=== PATIENT | female | born 1985 | race Caucasian/White ===

== ENCOUNTER 2017-07-30 06:03 | Day surgery (SDC) | payer OTHER ==
[2017-07-30 07:09] LABS: BASOPHILS 0.4 % (0-2); EOSINOPHILS 4.5 % (0-7); HEMATOCRIT 34.3 % (36.0-48.0); HEMOGLOBIN 10.8 g/dL (12-16); IMMATURE GRANULOCYTES 0.8 % (0-5); LYMPHOCYTES 28.4 % (15-50); MCH 30.1 pg (26.0-34.0); MCHC 31.5 g/dL (31.0-37.0); MCV 95.5 fL (80.0-100.0); MEAN PLATELET VOLUME 10.8 fL (7.4-10.4); MONOCYTES 8.3 % (2-11); NEUTROPHILS 57.6 % (40-80); PLATELET COUNT 177 10x3/uL (130-400); RBC 3.59 10x6/uL (4.00-5.40); RDW 14.3 % (11.5-14.5); WBC 5.1 10x3/uL (4.8-10.8)
[2017-07-30 07:18] LABS: APTT 30.7 SECONDS (22.8-39.4); INR 1.03 (0.85-1.17); PROTIME 13.3 SECONDS (11.6-15.0)
[2017-07-30 07:22] LABS: ANION GAP 16.1 mmol/L (8-16); CALCIUM 8.1 mg/dL (8.5-10.1); CARBON DIOXIDE 20.5 mmol/L (21.0-32.0); CREATININE - SERUM 5.8 mg/dL (0.6-1.3); POTASSIUM - SERUM 4.6 mmol/L (3.5-5.1)
[2017-07-30] MEDS ORDERED: TYLENOL W/CODEI1 TAB PO (08:20)
[2017-07-30] MEDS ORDERED: RENVELA800 MG PO (08:20)
[2017-07-30] MEDS ORDERED: METOPROLOL TART25 MG PO (08:21)
[2017-07-30] MEDS ORDERED: COUMADIN5 MG PO (08:22)
[2017-07-30] MEDS ORDERED: ULTRAM50 MG PO (08:22)
[2017-07-30] MEDS ORDERED: ZOLOFT100 MG PO (08:23)
[2017-07-30] MEDS ORDERED: ZOFRAN4 MG PO (08:23)
[2017-07-30 08:31] VITALS: BMI 27.5
[2017-07-30] MEDS ORDERED: PREDNISONE10 MG PO (08:32)
[2017-07-30] MEDS ORDERED: HYDROCODON-ACE1 EAC7 PO (12:28)
--- NOTE | 2017-07-30 13:07 | NUR ---
1255 BACK FROM AV FRAFT 2 DRESSINGS LEFT ARM C/D/I AND RT CHEST INFUSIPORT REMOVED BANDAID C/D/I NO BLEEDING TO SITES/. DR. STRICKLAND HERE TALKING TO PATIENT INFORMED OF HER HURTING STATED GOING HOME TODAY AND DIALYZE TOMORROW. REPORTED B/P ELEVATED TO DR. STRICKLAND.
--- NOTE | 2017-07-30 13:38 | NUR ---
1325 TOLERATING LEMON ELY SHOSHONE, RT CHEST BANDAID C/D/I LT ARM DRESSINGS C/D/I NO BLEEDING.
--- NOTE | 2017-07-30 13:41 | NUR ---
1330 REPORT TO BJ GRIER AND TOLD KYARA HEARD ABOUT PATIENT.
--- NOTE | 2017-07-30 15:52 | NUR ---
1400 IV DC WITH CATHER TIP INTACT
--- NOTE | 2017-08-04 14:25 | OP ---
PATIENT NAME: MARIPOSA HOLLIS MEDICAL RECORD: [id number] :81 LOCATION:D.OPS ADMISSION DATE: SURGEON: JADEN STRICKLAND MD DATE OF OPERATION: 07/30/2017 REFERRING PHYSICIAN: Dr. Espinosa and Dr. 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 OPERATION PERFORMED: Implantation of Acuseal PTFE AV graft in the right arm brachial artery to basilic vein rainbow configuration and removal of right internal jugular tunneled dialysis catheter. SURGEON: Jaden Strickland MD ANESTHESIA: Regional nerve block plus general via LMA per SLIDER ASSEMBLER and Dr. Martin. PREOPERATIVE NOTE: Ms. Hollis is a 32-year-old white female patient with end-stage renal disease, who has been dialyzing now for the last year with a catheter. She has had several failed attempts at AV fistulas. 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 She is here today for be removed the catheter and implant a graft. Under anesthesia in supine position, the patient was prepped and draped in a sterile manner. I examined it with ultrasound and confirmed that the basilic vein and brachial artery were acceptable vessels for my purposes. I actually thought that this patient would have been a candidate for a brachial artery to translocated basilic vein AV fistula had she not already had a catheter for so long and whether or not some urgency to removing her central catheter due to the thrombosis. I made a transverse axillary incision and exposed the basilic vein distal to the axillary. It was controlled with loops and later atraumatic vascular clamps. An incision was made just above the antecubital space and the brachial artery exposed and dissected free and controlled with Silastic loops. I chose a 4-6 mm tapered Acuseal graft and shortened and beveled it so that the arterial anastomosis was actually to about a 5-mm diameter part of the tapered segment. The artery was opened and flushed proximally and distally with heparinized saline and end of graft to side of artery anastomosis performed with running 6-0 Prolene. The graft was then placed in a rainbow shaped subcutaneous tunnel as close to the overlying skin as possible to facilitate access. The graft was then shortened and beveled and anastomosed end-to-side to the basilic vein again with running 6-0 Prolene. Both anastomoses were treated with topical Evicel. Prior to the release of the occluding clamps and loops and both suture lines were completely hemostatic as soon as the clamps were released and excellent flow was established in the fistula. The patient had excellent flow in the radial and ulnar arteries prior to implantation of the graft and both the radial and ulnar pulsatile Doppler flow signals were preserved with the new graft open and an excellent thrill was palpable over the arterial anastomosis. The wounds were irrigated with Ancef and gentamicin solution and closed with interrupted inverted 3-0 Vicryl and running intracuticular 4-0 Monocryl and Dermabond glue. They were dressed with Maxorb Ag, Tegaderm, and Cavilon skin prep. OPERATIVE REPORT [id number] MARIPOSA HOLLIS The chest was prepped and draped and the tunneled catheter accessed. Contrast was injected and imaging performed with the digital C-arm. There was no visible thrombus within the atrium or ventricle. The catheter was freed from its subcutaneous tunnel and backed out about 6 inches and another contrast injection through the arterial limb filled the internal jugular vein and brachiocephalic and superior vena cava and again there was no evidence of any persistent significant stenosis. The patient has recanalized and resorbed the previous thrombus while on anticoagulants. The catheter was completely removed and hemostasis obtained by placing the patient in reverse Trendelenburg position and applying direct digital pressure over the subcutaneous tunnel. The exit site was dressed with Maxorb Ag, Tegaderm, and Cavilon skin prep. The patient was then awakened and in stable condition taken to the recovery room. Blood loss was about 10 cc, none replaced. All sponges, instruments and needles were accounted for. No drain was used. No surgical specimen was submitted for histopathology, but I did send the tip of the catheter for culture. PLAN: The patient should be able to go home today and resume her usual diet, medications, and activities. She can go to dialysis tomorrow and have her first use of her Acuseal graft there in [place]. I have stressed to everyone in my notes and orders the importance of following Acuseal protocol, particularly on the first few dialysis sessions. This involves using smaller caliber needles, 17-gauge, keeping flows less than 400 cc per minute and the use of sterile gloves by the technicians and nurses when accessing the fistula. TRANSINT:[id number] Voice Confirmation ID: [id number] DOCUMENT ID: [id number] JADEN STRICKLAND MD at 1425 CC: KAROLYN MAURICIO MD and KAROLYN ESPINOSA MD [id number] DICTATION DATE: 07/30/17 1255 DESIGN PRINTER BALLOON: 07/30/17 1326 [facility] [place] 07/30/17 [place] [id number] [place] [id number]
== END 2017-07-30 14:15 | disposition home or self-care (01) ==
LOC: D.OPS 06:03
PROVIDERS: Surgery
DX: I13.2 Hypertensive heart and chronic kidney disease with heart failure and with stage 5 chronic kidney disease, or end stage renal disease (principal); N18.6 End stage renal disease; I50.9 Heart failure, unspecified; Z99.2 Dependence on renal dialysis; I82.210 Acute embolism and thrombosis of superior vena cava; Z01.812 Encounter for preprocedural laboratory examination

== ENCOUNTER 2018-11-04 09:10 | Observation (INO) | payer MEDICAID ==
[~2018-11-04 09:10] MED LIST: COUMADIN5 MG PO; HYDROCODON-ACE1 EAC7 PO; METOPROLOL TART25 MG PO; PREDNISONE10 MG PO; RENVELA800 MG PO; TYLENOL W/CODEI1 TAB PO; ULTRAM50 MG PO; ZOFRAN4 MG PO; ZOLOFT100 MG PO
--- NOTE | 2018-11-04 10:25 | NUR ---
PT ARRIVED TO THE FLOOR AND STATES SHE IS NOT WANTING ADMITTED SHE WAS TOLD SHE IS GOING TO HAVE SX TODAY AND BE DISCHARGED. SHE STATES ITS IMPOSSIBLE FOR HER TO STAY OVERNIGHT AND HAVE SX FOR HER CLOTTED ACCESS. I EXPLAINED TO PT THAT IT WASNT SCHEDULED AND WE DONT KNOW WHY SOMEONE TOLD HER THAT BUT WE CAN FIT HER IN TOMORROW AND SHE NEEDS TO STAY BECAUSE SHE WONT HAVE DIALYSIS ACCESS. SHE VERBALIZED UNDERSTANDING AND THE RISK OF MISSING HOWEVER SHE STATES SHE IS NOT STAYING. AMA FORM FILLED OUT AND DISCUSSED WITH DRE STANLEY APN ON FLOOR AND PT IS CHOOSING TO LEAVE ANYWAYS. NOTIFIED ADMITTING PHYSICIAN AND PT NOW LEAVING.
--- NOTE | 2018-11-07 10:11 | MORECARE ---
CASE MANAGEMENT DISCHARGE SUMMARY PATIENT: MARIPOSA HOLLIS UNIT: [id number] ADM DATE: 11/04/18 AGE: 33 : [birth year] SEX: F ROOM/BED: D.2919 AUTHOR: SHANNAN CARDONA PHYSICIAN: REFERRING PHYSICIAN: COMFORT SAMANIEGO MD DATE OF SERVICE: 11/07/18 Discharge Plan Patient Name: MARIPOSA HOLLIS Facility: [facility]:[place] : 1985 Planned Disposition: Left Against Medical Advice Anticipated Discharge Date: 11/04/18 Discharge Date: 11/04/2018 Expected LOS: 1 Initial Reviewer: [email or web address] Initial Review Date: 11/07/2018 Generated: 11/07/18 11:11 am Patient Name: MARIPOSA HOLLIS Page [phone] at 1011 All edits/amendments must be made on the electronic document DICTATION DATE: 11/07/18 1011 GATE MANAGER: KOMAL 11/07/18 1011 RPT#: [id number] DC DATE:11/04/18 STATUS: DIS IN [facility] [address] [place] [address] END OF REPORT
== END 2018-11-04 10:36 | disposition left against medical advice (07) ==
LOC: D.M2 09:10 → OBSVTIME 09:11 → D.M2 10:36
PROVIDERS: ADMIT Internal Medicine
DX: T82.868A Thrombosis due to vascular prosthetic devices, implants and grafts, initial encounter (principal); Y83.8 Other surgical procedures as the cause of abnormal reaction of the patient, or of later complication, without mention of misadventure at the time of the procedure

== ENCOUNTER 2018-11-08 07:22 | Day surgery (SDC) | payer MEDICAID ==
[~2018-11-08] VITALS: Ht 167.6 cm; Wt 77.3 kg
[2018-11-08 08:19] LABS: CARBON DIOXIDE 17.1 mmol/L (21.0-32.0); CREATININE - SERUM 16.4 mg/dL (0.6-1.3)
[2018-11-08 08:21] LABS: INR 1.18 (0.85-1.17); PROTIME 14.5 SECONDS (11.6-15.0)
[2018-11-08 08:25] LABS: BASOPHILS 1.6 % (0-2); EOSINOPHILS 2.8 % (0-7); HEMATOCRIT 29.6 % (36.0-48.0); HEMOGLOBIN 9.3 g/dL (12-16); LYMPHOCYTES 13.9 % (15-50); MCH 30.2 pg (26.0-34.0); MCHC 31.4 g/dL (31.0-37.0); MCV 96.1 fL (80.0-100.0); MONOCYTES 2.8 % (2-11); NEUTROPHILS 78.9 % (40-80); RBC 3.08 10x6/uL (4.00-5.40); RDW 16.6 % (11.5-14.5); WBC 3.2 10x3/uL (4.8-10.8)
[2018-11-08 08:27] LABS: PLATELET COUNT 102 10x3/uL (130-400)
[2018-11-08 08:54] LABS: ANION GAP 25.1 mmol/L (8-16); CALCIUM 6.9 mg/dL (8.5-10.1); POTASSIUM - SERUM 6.2 mmol/L (3.5-5.1)
[2018-11-08] MEDS ORDERED: HYDRALAZINE HCL50 MG PO (09:54)
[2018-11-08] MEDS ORDERED: REQUIP5 MG PO ×2 (09:56)
[2018-11-08 09:57] LABS: HCG SERUM NEGATIVE (NEGATIVE)
--- NOTE | 2018-11-08 10:28 | NUR ---
LAB CALLED TO REPORT CRITICAL POTASSIUM OF 6.2. DR MORTENSEN CALLED AND INFORMED OF POTASSIUM. HYPERKALEMIA ORDERS GIVEN (SEE ORDERS), AND STATED TO REDRAW POTASSIUM IN 1 HOUR AFTER GIVING MEDICATIONS. PT HAS NO COMPLAINTS AT THIS TIME, PT DENIES ANY CHEST PAIN, EKG DONE, WILL CONTINUE TO MONITOR.
[2018-11-08 13:04] LABS: ALBUMIN 3.4 g/dL (3.4-5.0); ANION GAP 24.4 mmol/L (8-16); BILIRUBIN - TOTAL 0.31 mg/dL (0.2-1.3); CALCIUM 7.8 mg/dL (8.5-10.1); CARBON DIOXIDE 17.9 mmol/L (21.0-32.0); CREATININE - SERUM 16.5 mg/dL (0.6-1.3); PROTEIN - SERUM 7.1 g/dL (6.4-8.2)
[2018-11-08 13:05] LABS: POTASSIUM - SERUM 6.3 mmol/L (3.5-5.1)
--- NOTE | 2018-11-08 13:17 | NUR ---
LAB CALLED AT THIS TIME ON CRITICAL HIGH POTASSIUM OF 6.3. ANESTHESIA CALLED AT THIS TIME AND INFORMED OF PT POTASSIUM, WILL CONTINUE TO MONITOR.
--- NOTE | 2018-11-08 15:52 | NUR ---
CALLED GREGORIA SALDIVAR NP AT THIS TIME REGARDING ORDERS FOR DIALYSIS. MAKAYLA SALDIVAR STATES THAT SHE WILL CALL DIALYSIS NURSE AT THIS TIME AND SCHEDULE DIALYSIS.
--- NOTE | 2018-11-08 17:05 | NUR ---
REPORT GIVEN TO GORDON CRUZ, WILL TRANSFER PT AT THIS TIME, VSS NAD NOTED.
--- NOTE | 2018-11-08 17:45 | NUR ---
RECEIVED PT TO ROOM 2132 VIA BED, VITAL SIGNS STABLE, PLACED PT ON FREQUENT VITAL SIGNS. ORIENTED PT TO ROOM AND CALL LIGHT. PT A/O X4, RESP EVEN AND NONLABORED ON RA. HEMOSPLIT TO LT CHEST, DRESSING CDI. RT FA IV SL. PT DENIES ANY NEEDS AT THIS TIME. CALL LIGHT IN REACH, NAD NOTED, WILL ASSESS PT AND START PLAN OF CARE.
[2018-11-08 17:47] VITALS: BP 158/90; Ht 167.6 cm; Wt 77.3 kg
--- NOTE | 2018-11-08 18:17 | NUR ---
PT TRANSFERED TO DIALYSIS AT THIS AT TIME.
--- NOTE | 2018-11-08 18:24 | NUR ---
CALLED GREGORIA SALDIVAR APN, AND ASKED HER IF REQUIP, TRAMADOL, HYDRALAZINE AND METOPROLOL COULD BE STARTED FOR PT. GREGORIA SALDIVAR STATED TO GO AHEAD AND RESTART THOSE MEDICATIONS.
--- NOTE | 2018-11-08 19:32 | NUR ---
CURRRENTLY IN DIALYSIS.
--- NOTE | 2018-11-08 20:16 | NUR ---
RECIEVED CALL FROM GAIL, NURSE IN DIALYSIS, INFORMED THAT PT IS C/O PAIN TO LEFT CHEST HEMOSPLIT INSERTION. BUPRENEX 0.1 MG GIVEN IM TO LEFT DORSALGLUTE. RATES PAIN AT A 9 OUT OF TEN ON PAIN SCALE.
--- NOTE | 2018-11-08 21:47 | NUR ---
BACK TO ROOM FROM DIALYSIS, HS MEDS GIVEN WITH FRESH ICE WATER. SANDWHICH TRAY GIVEN.
[2018-11-09] VITALS: BP 139/74
--- NOTE | 2018-11-09 03:46 | NUR ---
PT ASLEEP, RESP EVEN AND UNLABORED. NO S/S OF DISTRESS, BEDLOW AND CALL LIGHT IN REACH. WILL CPOC
[2018-11-09 04:00] VITALS: BP 147/97
--- NOTE | 2018-11-09 07:10 | NUR ---
REPORT RECIEVED FROM PEST CONTROL SERVICE REPRESENTATIVE. PATIENT LAYING ON BACK IN BED. PATIENT AWAKE, ALERT AND ORIENTED X 4. PATIENT DENIES ANY PAIN OR NEEDS. WILL CONTINUE WITH PLAN OF CARE. SR UP X 2. BED IN LOW POSTION AND CALL LIGHT IN REACH.
[2018-11-09 08:04] VITALS: BP 169/101
[2018-11-09 12:31] VITALS: BP 176/88
--- NOTE | 2018-11-09 14:40 | NUR ---
PATIENT IS STABLE AND VS ARE GOOD. PATIENT DENIES ANY NEEDS OR PAIN. PATIENT STATES MORE THAN ONCE THAT SHE IS READY TO GO. PATIENT HAD ORDER FOR POTASSIUM TO BE DRAWN AT DC BUT REFUSES. SPENT SEVERAL MINUTES DISCUSSING RISKS BUT PATIENT ADAMANTLY REFUSED. OK PER DR VAZQUEZ FOR DC. DC INSTRUCTIONS GIVEN BOTH VERBALLY AND WRITTEN. PATIENT VERBALIZED UNDERSTANDING AND SIGNED PAPERS. PATIENT IS DC TO HOME FOR SELF CARE PER PRIVATE VEHICLE. PATIENT DECLINES WC TO LEAVE FACILTY.
--- NOTE | 2018-11-18 13:37 | OP ---
PATIENT NAME: MARIPOSA HOLLIS MEDICAL RECORD: [id number] :81 LOCATION:D.OPS ADMISSION DATE: SURGEON: JADEN STRICKLAND MD DATE OF OPERATION: 11/08/2018 REFERRING PHYSICIANS: 1. Davina Marie MD, [facility] 2. Locally, Chay Mauricio MD PREOPERATIVE DIAGNOSES: End-stage renal disease with dependence on hemodialysis, thrombosed left arm AV graft, and hyperkalemia. POSTOPERATIVE DIAGNOSES: End-stage renal disease with dependence on hemodialysis; thrombosed left arm AV graft; and hyperkalemia plus right internal jugular vein thrombosis, chronic. OPERATION PERFORMED: Insertion of a left internal jugular 23-cm HemoSplit tunneled dialysis catheter using ultrasound guidance as well as fluoroscopy. SURGEON: Jaden Strickland MD ANESTHESIA: Local 1% lidocaine without epinephrine plus IV sedation and monitoring per FOUNDATION DIGGER, MAC not TIVA. PREOPERATIVE NOTE: Ms. Hollis is a 33-year-old white female who has been on dialysis for about 3 years with a left arm AV graft which, I believe, I implanted, brachial artery to axillary vein. It thrombosed suddenly last week apparently without warning. She actually had had a normal angiogram, which I did myself at [facility] in early October. So, the cause of her graft failure is unknown. At any rate, her graft thrombosed and she was sent up here to [place] and came in on Wednesday, but got mad and left angrily, signing out AMA when she was told her operation could not be done until Wednesday, that would have been a percutaneous mechanical thrombolysis and indicated procedures, hopefully saving her access without the need for a catheter. However, today, she is hyperkalemic and her potassium levels have not changed despite medical treatment, so she is brought to the operating room and we plan to implant a HemoSplit catheter and return another day to try to salvage her graft. DESCRIPTION OF PROCEDURE: Under minimal if any sedation with reassurance verbally from the mesh worker, with the patient in supine position, she was prepped and draped in sterile manner. The right internal jugular vein was studied and noted to be fully thrombosed. The left internal jugular vein was fairly turgid but basically normal. It was compressible. There was no echogenic material within it or thrombus and it was of approximately normal size. Lidocaine was injected into the skin and subcutaneous tissues over the vein at the base of the neck and a small incision was made, and through that with ultrasound guidance, a micropuncture needle and wire were inserted. The wire passed into the superior vena cava and right atrium as seen under fluoroscopy. A catheter was placed over the wire. Another larger wire was inserted and then serial dilators were advanced and finally a dilator peel-away sheath was placed. I placed an entry site for the HemoSplit catheter below the clavicle and pulled the new catheter through that site and a subcutaneous tunnel up to the neck. The catheter was then inserted through the peel-away sheath as it was removed. It was seen under fluoroscopy that the catheter came to rest very nicely deeply in the right atrium without any complications. Both lumens OPERATIVE REPORT [id number] TELMAMARIPOSA PLATA of the catheter were accessed and aspirated. Free return of blood from each confirmed. They were then flushed with saline, clamped, and capped. The surgical incision was approximated with interrupted inverted 3-0 Vicryl and Dermabond glue; and dressed with Maxorb Ag, Tegaderm, and Cavilon skin prep. The catheter was sutured to the skin near the entry site and a Bioguard patch was applied to the catheter at the exit site and then a standard CVL dressing applied. The patient was then returned to her room in stable condition. Plans will be for her to go on to dialysis as soon as possible. I really will not be able to get her into the operating room here at [facility] to do a mechanical thrombolysis procedure this week. Perhaps it would be better for her to have dialysis here now and then be discharged and transported to [facility] tomorrow for her declot procedure. If that cannot be worked out, then perhaps another day, but I think O[facility] is the best option for this problem. TRANSINT:[id number] Voice Confirmation ID: [id number] DOCUMENT ID: [id number] JADEN STRICKLAND MD at 1337 CC: CHAY MAURICIO and DAVINA MARIE III MD [id number] DICTATION DATE: 11/08/18 1535 STRUCTURAL IRON WORKER: 11/08/18 1823 [facility] 11/09/18 [facility] [address] [place] [id number]
== END 2018-11-09 14:40 | disposition home or self-care (01) ==
LOC: D.OPS 07:22 → D.M2 17:07 → D.OPS 11-09 14:40
PROVIDERS: Anesthesiology; Internal Medicine Nephrology; Surgery
DX: T82.868A Thrombosis due to vascular prosthetic devices, implants and grafts, initial encounter (principal); Y83.8 Other surgical procedures as the cause of abnormal reaction of the patient, or of later complication, without mention of misadventure at the time of the procedure; N18.6 End stage renal disease; Z99.2 Dependence on renal dialysis; E87.5 Hyperkalemia

== ENCOUNTER 2018-12-11 08:16 | Inpatient (IN) | payer MEDICAID ==
[2018-12-11] VITALS (16 sets, daily range): BP systolic 160–196; BP diastolic 91–128; BMI 29.3
[~2018-12-11] VITALS: Ht 165.1 cm; Wt 74.6 kg
[~2018-12-11 08:16] MED LIST changes: +HYDRALAZINE HCL50 MG PO; +REQUIP5 MG PO
--- NOTE | 2018-12-11 09:21 | NUR ---
PTS FSBS NOTED TO BE 77. DIABETIC BREAKFAST TRAY GIVEN.
--- NOTE | 2018-12-11 09:30 | NUR ---
RECEIVED PT FROM ER VIA WHEELCHAIR. PLACED ON VICE PRESIDENT OF CONTRACTS ALARMS ON AND AUDIBLE. READING SR-ST WITHOUT ECTOPY. B/P 196/128. ASKED HER IF "THAT HIGH" PTS B/P IS EXTREMELY HIGH. SHE STATES YES IT IS ALWAYS THAT AND HIGHER AND HOME MEDICATIONS DO NOT HELP. PT ALERT AND ORIENTED DOES GET SOB WITH MINIMAL ACTIVITY. RESP RATE INCREASED SHALLOW WHEEZES NOTED. O2 SAT 94% ON ROOM AIR. ABD SOFT NONTENDER BOWEL SOUNDS ACTIVE. PT STATES SHE HAS BEEN ON DIALYSIS FOR 5 YEARS DOES STILL MAKE URINE. LEFT CHEST WALL TUNNEL CATH NOTED WITH DRESSING NOT INTACT INSERTION AREA PINK NO HEAT OR DRAINAGE. SKIN WARM AND DRY PPP. NO EDEMA NOTED. SIDE RAILS UP TIMES 3 FOR BED MOBILITY AND SAFETY CALL LIGHT IN REACH. PT DENIES PREVIOUS USE OF COCAINE BUT DOES USE MARIJUANA FREQUENTLY.
[2018-12-11 09:35] LABS: CKMB 1.6 U/L (0.0-3.6)
--- NOTE | 2018-12-11 10:20 | NUR ---
PAGED DR VAZQUEZ PT REQUESTING REQUIP HER LEGS ARE CRAMPING AND TO INFORM ABOUT EXTREME HIGH B/P.
--- NOTE | 2018-12-11 10:30 | NUR ---
DR VAZQUEZ HERE ROUNDS PLACING B/P ORDERS FOR BLOOD PRESSURE AND STATES SBP OK 160-180 RANGE DOESNT WANT TO DROP TOO LOW. STATES NEEDS DIALYSIS AND HE HAS PLACED DIALYSIS ORDERS WELL MEDS.
--- NOTE | 2018-12-11 12:15 | NUR ---
DIALYSIS STARTED DR VAZQUEZ HERE STATED TO GET THE LABWORK HE ORDERED 1.5 HOURS POST DIALYSIS EXCEPT FOR THE BLOOD CULTURES
--- NOTE | 2018-12-11 13:08 | NUR ---
DR VAZQUEZ BACK AT BEDSIDE AWARE OF B/P STATES DIALYSIS SHOULD BRING BP DOWN
--- NOTE | 2018-12-11 13:30 | NUR ---
DIALYSIS CONTINUES. PTS SBP TRENDING DOWN WAS 180-190'S NOW 163
--- NOTE | 2018-12-11 13:30 | NUR ---
DR UGO WALTON
--- NOTE | 2018-12-11 15:50 | NUR ---
ANSWERED CALL LIGHT PT WANTS SOMETHING FOR HEADACHE SHE WOKE UP WITH HEADACHE
--- NOTE | 2018-12-11 16:35 | NUR ---
DR ARIZMENDI STILL ON UNIT ROUNDING ON PATIENTS INFORMED PTS LAST 3 B/P HAVE BEEN 186/128 189/120 177/122 POST DIALYSIS AND AFTER IV LOPRESSOR. HE STATED IT WILL BE A SLOW PROCESS TO GET HER B/P TO NORMAL LEVEL HE ORDERED NORVASC 10MG BID PO
--- NOTE | 2018-12-11 17:31 | NUR ---
PT RESTING QUIETLY EYES CLOSED BLOOD PRESSURE COMING DOWN SLOWLY
[2018-12-11 17:43] LABS: BASOPHILS 1.8 % (0-2); EOSINOPHILS 3.5 % (0-7); HEMATOCRIT 27.2 % (36.0-48.0); HEMOGLOBIN 8.7 g/dL (12-16); LYMPHOCYTES 20.7 % (15-50); MCH 30.3 pg (26.0-34.0); MCV 94.8 fL (80.0-100.0); MEAN PLATELET VOLUME 11.8 fL (7.4-10.4); MONOCYTES 4.5 % (2-11); NEUTROPHILS 69.5 % (40-80); RBC 2.87 10x6/uL (4.00-5.40); RDW 15.4 % (11.5-14.5); WBC 4.9 10x3/uL (4.8-10.8)
[2018-12-11 17:45] LABS: ANION GAP 20.3 mmol/L (8-16); BILIRUBIN - TOTAL 0.45 mg/dL (0.2-1.3); CALCIUM 8.1 mg/dL (8.5-10.1); CARBON DIOXIDE 23.1 mmol/L (21.0-32.0); CREATININE - SERUM 8.6 mg/dL (0.6-1.3); POTASSIUM - SERUM 4.4 mmol/L (3.5-5.1); PROTEIN - SERUM 6.4 g/dL (6.4-8.2)
[2018-12-11 18:34] LABS: PLATELET COUNT 132 10x3/uL (130-400)
--- NOTE | 2018-12-11 19:15 | NUR ---
Received patient resting in bed with eyes closed, assessment completed per flowsheet. Patient AO x4, calm and cooperative. C/O nausea, notified Dr Duggan with new orders received. S1/S2 noted NSR on telemetry with HR 90, rythmic and regular. Breathing is even/unlabored on room air with O2 sat 99%, lung sounds clear throughtout. Tesio cath L upper chest wall, dresing CDI. L arm reserve, fistula noted. All pulses palpable wtih cap refill < 3 sec, skin warm/dry. Denies pain or other needs at this time, see flowsheet for details. All VSS and will continue to monitor.
--- NOTE | 2018-12-11 19:29 | MORECARE ---
CASE MANAGEMENT DISCHARGE SUMMARY PATIENT: MARIPOSA HOLLIS UNIT: [id number] ADM DATE: 12/11/18 AGE: 33 : 81 SEX: F ROOM/BED: D.2302 AUTHOR: SHANNAN CARDONA PHYSICIAN: REFERRING PHYSICIAN: MYKE ARIZMENDI MD DATE OF SERVICE: 12/11/18 Discharge Plan Patient Name: MARIPOSA HOLLIS Facility: [facility]:[place] : 1985 Planned Disposition: Anticipated Discharge Date: Discharge Date: Expected LOS: Initial Reviewer: [email or web address] Initial Review Date: 12/11/2018 Generated: 12/11/18 8:29 pm Patient Name: MARIPOSA HOLLIS Page [id number] at 1928 All edits/amendments must be made on the electronic document DICTATION DATE: 12/11/181928 REFINERY OPERATOR REFORMING UNIT: KOMAL 12/11/181928 RPT#: [id number] DC DATE: STATUS: ADM IN [facility] [address] [place] [address] END OF REPORT
--- NOTE | 2018-12-11 21:05 | NUR ---
Patient resting in bed with eyes open, HS meds given without difficulty. PO Norvasc unverified in eMAR, warehouse distribution manager notified and will give when available. No further needs at this time, all VSS and will continue to monitor.
--- NOTE | 2018-12-11 23:05 | NUR ---
Reassessment completed per flowsheet, no changes noted from previous assessment. Patient c/o headache 11/13, B/P elevated with scheduled Lopressor given as ordered. All pulses palpable with cap refill < 3 sec, skin warm/dry. No further needs at this time, see flowsheet for details. All VSS and will continue to monitor.
[2018-12-12] VITALS (16 sets, daily range): BP systolic 149–173; BP diastolic 92–109; Ht 165.1 cm; Wt 74.6 kg
--- NOTE | 2018-12-12 01:00 | NUR ---
Patient resting in bed with eyes closed, no s/s of distress at this time. Denies needs at this time, all VSS and will continue to monitor.
--- NOTE | 2018-12-12 03:08 | NUR ---
Reassessment completed per flowsheet, no changes from previous assessment. Patient AO x4, calm and cooperative. L upper chest Tesio dressing CDI, heparin locked. C/O headache 03/13, PRN Tylenol given and will reassess. Patient denies other needs at this time, see flowsheet for details. All VSS and will continue to monitor.
[2018-12-12 04:22] LABS: BASOPHILS 0.8 % (0-2); EOSINOPHILS 4.6 % (0-7); HEMATOCRIT 26.5 % (36.0-48.0); HEMOGLOBIN 8.4 g/dL (12-16); LYMPHOCYTES 26.5 % (15-50); MCH 29.8 pg (26.0-34.0); MCHC 31.7 g/dL (31.0-37.0); MEAN PLATELET VOLUME 10.8 fL (7.4-10.4); MONOCYTES 5.9 % (2-11); NEUTROPHILS 62.2 % (40-80); PLATELET COUNT 116 10x3/uL (130-400); RBC 2.82 10x6/uL (4.00-5.40); RDW 15.2 % (11.5-14.5); WBC 3.9 10x3/uL (4.8-10.8)
[2018-12-12 04:39] LABS: CALCIUM 7.7 mg/dL (8.5-10.1); CARBON DIOXIDE 22.4 mmol/L (21.0-32.0)
[2018-12-12 04:40] LABS: POTASSIUM - SERUM 5.4 mmol/L (3.5-5.1)
--- NOTE | 2018-12-12 05:00 | NUR ---
Patient resting in bed with eyes closed, denies pain post PRN Tylenol. Am labs collected by metallurgist process without difficulty, no further needs and will continue to monitor.
--- NOTE | 2018-12-12 07:00 | NUR ---
DR VAZQUEZ SPEAKING WITH NIGHT NURSE CORNELIUS PTS B/P STILL HIGH, DR VAZQUEZ STATED HE IS OK WITH SPB 160-180 STATED DOESNT WANT TO DROP HER TOO QUICKLY. REPORT RECEIVED INITIAL ASSESSMENT COMPLETE POLE FRAME CONSTRUCTION WORKER WITH ALARMS ON AMD AUDIBLE READING SR WITHOUT ECTOPY. RESP EVEN NONLABORED ON ROOM AIR O2SAT 98%. DR VAZQUEZ PUTTING ORDERS FOR TRANSFER TO FLOOR. PT ABLE TO REPOSITION AND GETS UP AD JEAN TO BSC INDEPENDENTLY BED IN LOW POSIITON CALL LIGHT IN REACH. LEFT CHEST WALL TUNNEL CATH BEING USED FOR DIALYSIS PT HAS LEFT UPPER ARM FISTULA NON FUNCTIONING.
--- NOTE | 2018-12-12 08:00 | NUR ---
SPEAKING WITH PATIENT ABOUT DIET FOR RENAL DISEASE AND FOODS THAT WILL INCREASE POTASSIUM. WILL SPEAK TO PRINCIPAL SOFTWARE ENGINEER ABOUT GETTING PT INFORMATION
--- NOTE | 2018-12-12 09:00 | NUR ---
SPOKE WITH INTERNAL CONTROLS CONSULTANT ABOUT PT NEEDING INFORMATION ON RENAL DIET AND HIGH K FOODS
--- NOTE | 2018-12-12 11:30 | NUR ---
DR UGO WALTON
--- NOTE | 2018-12-12 15:00 | NUR ---
UGO AT BEDSIDE STATED OK TO D/C POST DIALYSIS TODAY PT ATTEMPTING TO GET FAMILY TO PICK HER UP.
--- NOTE | 2018-12-12 15:10 | NUR ---
ANSWERED PTS CALL LIGHT SHE STATED HER DAD COULD COME PICK HER UP AFTER DIALYSIS AROUND 6 TONIGHT.
--- NOTE | 2018-12-12 15:16 | NUR ---
ANSWERED PTS CALL LIGHT SHE STATED HER DAD WILL NOT BE ABLE TO PICK HER UP THIS EVENING BUT SHOULD BE ABLE FIRST THING IN AM. SHE SAID I AM GOING TO SEE IF SOMEONE ELSE WILL BE ABLE TO PICK ME UP. PT LIVES IN [place]. SHE IS NAUSEATED AND ASKED FOR ZOFRAN MEDICATED WITH ZOFRAN PER PRN EMAR ORDER
[2018-12-12] MEDS ORDERED: NORVASC5 MG PO (15:33)
[2018-12-12] MEDS ORDERED: LISINOPRIL10 MG PO (15:33)
[2018-12-12] MEDS ORDERED: METOPROLOL TART50 MG PO (15:33)
--- NOTE | 2018-12-12 16:00 | NUR ---
UGO AT BEDSIDE SPEAKING WITH PATIENT ABOUT D/C AFTER DIALYSIS SHE INFORMED DR THAT SHE WAS STILL TRYING TO GET A RIDE AFTER DIALYSIS
--- NOTE | 2018-12-12 16:50 | NUR ---
DIALYSIS READY FOR PATIENT. PT TRANSPORTED TO FIRST FLOOR DIALYSIS UNIT VIA WHEELCHAIR FOR DIALYSIS TREATMENT. AT THIS TIME PT WILL BE COMING BACK TO ICU 2302 PT WAS UNABLE TO GET A RIDE UNTIL AM.
--- NOTE | 2018-12-12 17:27 | MORECARE ---
CASE MANAGEMENT DISCHARGE SUMMARY PATIENT: MARIPOSA HOLLIS UNIT: [id number] ADM DATE: 12/11/18 AGE: 33 : 81 SEX: F ROOM/BED: D.2302 AUTHOR: SHANNAN CARDONA PHYSICIAN: REFERRING PHYSICIAN: MYKE ARIZMENDI MD DATE OF SERVICE: 12/12/18 Discharge Plan Patient Name: MARIPOSA HOLLIS Facility: [facility]:[place] : 1985 Planned Disposition: Home Anticipated Discharge Date: Discharge Date: Expected LOS: Initial Reviewer: [email or web address] Initial Review Date: 12/12/2018 Generated: 12/12/18 6:27 pm Last DP export: 12/11/18 6:29 p Patient Name: MARIPOSA HOLLIS Page [id number] at 1727 All edits/amendments must be made on the electronic document DICTATION DATE: 12/12/181725 REMITTANCE CLERK: KOMAL 12/12/181725 RPT#: [id number] DC DATE: STATUS: ADM IN [facility] [address] [place] [address] END OF REPORT
--- NOTE | 2018-12-12 17:39 | MORECARE ---
CASE MANAGEMENT DISCHARGE SUMMARY PATIENT: MARIPOSA HOLLIS UNIT: [id number] ADM DATE: 12/11/18 AGE: 33 : [birth year] SEX: F ROOM/BED: D.2302 AUTHOR: DULCEDOC PHYSICIAN: REFERRING PHYSICIAN: MYKE ARIZMENDI MD DATE OF SERVICE: 12/12/18 Discharge Plan Patient Name: MARIPOSA HOLLIS Facility: [facility]:[place] : 1985 Planned Disposition: Home Anticipated Discharge Date: Discharge Date: Expected LOS: Initial Reviewer: [email or web address] Initial Review Date: 12/12/2018 Generated: 12/12/18 6:38 pm Comments DCP- Discharge Planning Updated by [email or web address]: Niya Dougherty on 12/12/18 4:[address] Patient Name: MARIPOSA HOLLIS Admission Status: ER Accout number: [id number] Admission Date: 12-11-2018 : 1985 Admission Diagnosis: Attending: MYKE ARIZMENDI Current LOS: 1 Anticipated DC Date: Planned Disposition: Home Primary Insurance: MEDICAID [place] Discharge Planning Comments: CM met with patient at bedside. Patient states she lives at home with family and plans to return there upon discharge. She states she has dialysis in [place] T//S @ 1100. She denies any HH or medical equipment prior to admission. Patient denies any discharge needs at this time. CM will continue to follow and assist as needed with discharge planning / needs. Parking Lot Chauffeur: Niya Dougherty DCPIA - Discharge Planning Initial Assessment Updated by [email or web address]: Niya Dougherty on 12/12/18 5:28 pm * Is the patient Alert and Oriented? Yes * How many steps to enter\exit or inside your home? * PCP DR. KATELYN VALENTE * Pharmacy [facility] * Preadmission Environment Home with Family * ADLs Independent * Equipment None * List name and contact numbers for known caregivers / representatives who currently or will assist patient after discharge: PASTORA HOLLIS - FATHER- [phone] * Verbal permission to speak to the caregivers and representatives has been obtained from the patient. Yes * Community resources currently utilized None * Please name any agencies selected above. HD -T/TH/SAT DIALYSIS IN [place] @11:00 * Additional services required to return to the preadmission environment? No * Can the patient safely return to the preadmission environment? Yes * Has this patient been hospitalized within the prior 30 days at any hospital? Yes Last DP export: 12/12/18 4:27 p Patient Name: MARIPOSA HOLLIS Page [id number] at 1739 All edits/amendments must be made on the electronic document DICTATION DATE: 12/12/181737 DIDACTIC PROGRAM IN DIETETICS DIRECTOR: KOMAL 12/12/181737 RPT#: [id number] DC DATE: STATUS: ADM IN [facility] [address] [place] [address] END OF REPORT
--- NOTE | 2018-12-12 20:00 | NUR ---
Patient completed dialysis and returned to 2302, assessment completed per flowsheet. Patient AO x4, follows instructions. S1/S2 noted NSR on telemetry with HR 84, rythmic and regular. Breathing is even/unlabored on room air with O2 sat 93%, lung sounds clear throughout. L upper arm fistula with dressing CDI, thrill/bruit noted. All pulses palpable with cap refill < 3 sec, skin warm/dry. Denies pain or other needs at this time, see flowsheet for details. All VSS and will continue to monitor.
--- NOTE | 2018-12-12 23:00 | NUR ---
Patient sleeping in bed with eyes closed, no changes noted from previous assessment. S1/S2 noted NSR on telemetry with HR 76, rythmic and regular. Breathing is even/unlabored on room air with O2 sat 94%, lung sounds clear throughout. L upper arm fistula with dressing CDI, L upper chest dialysis cath dressing CDI. All pulses palpable with cap refill < 3 sec, skin warm/dry. Denies pain or other needs at this time, all VSS and will continue to monitor.
--- NOTE | 2018-12-13 01:00 | NUR ---
Patient sleeping in bed, no changes noted. Denies pain or other needs, all VSS and will continue to monitor.
[2018-12-13 03:00] VITALS: BP 171/106
--- NOTE | 2018-12-13 03:05 | NUR ---
Patient sleeping in bed with eyes closed, denies pain or other needs at this time. NSR on telemetry with HR 79, rythmic and regular. Breathing is even/unlabored on room air with O2 sat 95%, lung sounds clear throughout. All pulses palpable with cap refill < 3 sec, skin warm/dry. No further needs at this time, all VSS and will continue to monitor.
[2018-12-13 04:52] LABS: HEMATOCRIT 28.8 % (36.0-48.0); HEMOGLOBIN 9.4 g/dL (12-16); MCH 30.4 pg (26.0-34.0); MCHC 32.6 g/dL (31.0-37.0); MCV 93.2 fL (80.0-100.0); PLATELET COUNT 136 10x3/uL (130-400); RBC 3.09 10x6/uL (4.00-5.40); RDW 15.1 % (11.5-14.5); WBC 3.9 10x3/uL (4.8-10.8)
--- NOTE | 2018-12-13 05:00 | NUR ---
AM labs collected without difficulty, patient sleeping in bed with eyes closed. No s/s of distress at this time, all VSS and will continue to monitor.
[2018-12-13 05:05] LABS: CALCIUM 7.3 mg/dL (8.5-10.1); CREATININE - SERUM 7.9 mg/dL (0.6-1.3)
[2018-12-13 05:08] LABS: ANION GAP 13.9 mmol/L (8-16); CARBON DIOXIDE 29.1 mmol/L (21.0-32.0)
[2018-12-13 05:50] LABS: EOSINOPHILS 2 % (0-7); LYMPHOCYTES 34 % (15-50); MONOCYTES 1 % (2-11); NEUTROPHILS 63 % (40-80); PLATELET ESTIMATE DECREASED
--- NOTE | 2018-12-13 07:30 | NUR ---
REPORT RECIEVED, SHIFT ASSESSMENT COMPLETE, PT IS ALERT AND ORIENTED, ALL PPP, VSS, CALL LIGHT IN REACH
[2018-12-13 08:00] VITALS: BP 165/100
--- NOTE | 2018-12-13 08:00 | NUR ---
DR. ARIZMENDI AT BEDSIDE, OK TO D/C HOME
--- NOTE | 2018-12-13 09:01 | NUR ---
PT DC'D HOME AT THIS TIME, WITH DAD
--- NOTE | 2018-12-13 10:23 | MORECARE ---
CASE MANAGEMENT DISCHARGE SUMMARY PATIENT: MARIPOSA HOLLIS UNIT: [id number] ADM DATE: 12/11/18 AGE: 33 : 81 SEX: F ROOM/BED: D.2302 AUTHOR: DULCE,DOC PHYSICIAN: REFERRING PHYSICIAN: MYKE ARIZMENDI MD DATE OF SERVICE: 12/13/18 Discharge Plan Patient Name: MARIPOSA HOLLIS Facility: [facility]:[place] : 1985 Planned Disposition: Home Anticipated Discharge Date: Discharge Date: 12/13/2018 Expected LOS: Initial Reviewer: [email or web address] Initial Review Date: 12/12/2018 Generated: 12/13/18 11:23 am Comments DCP- Discharge Planning Updated by [id number]: Niya Dougherty on 12/12/18 4:[address] Patient Name: MARIPOSA HOLLIS Admission Status: ER Accout number: [id number] Admission Date: 12-11-2018 : 1985 Admission Diagnosis: Attending: MYKE ARIZMENDI Current LOS: 1 Anticipated DC Date: Planned Disposition: Home Primary Insurance: MEDICAID [place] Discharge Planning Comments: CM met with patient at bedside. Patient states she lives at home with family and plans to return there upon discharge. She states she has dialysis in [place] [facility] @ 1100. She denies any HH or medical equipment prior to admission. Patient denies any discharge needs at this time. CM will continue to follow and assist as needed with discharge planning / needs. Premium Note Interest Calculator Clerk: Niya Dougherty DCPIA - Discharge Planning Initial Assessment Updated by [email or web address]: Niya Dougherty on 12/12/18 5:28 pm * Is the patient Alert and Oriented? Yes * How many steps to enter\exit or inside your home? * PCP DR. KATELYN Conn REBECA * Pharmacy [facility] * Preadmission Environment Home with Family * ADLs Independent * Equipment None * List name and contact numbers for known caregivers / representatives who currently or will assist patient after discharge: PASTORA HOLLIS - FATHER- [phone] * Verbal permission to speak to the caregivers and representatives has been obtained from the patient. Yes * Community resources currently utilized None * Please name any agencies selected above. HD -T/TH/SAT DIALYSIS IN [place] @11:00 * Additional services required to return to the preadmission environment? No * Can the patient safely return to the preadmission environment? Yes * Has this patient been hospitalized within the prior 30 days at any hospital? Yes Last DP export: 12/12/18 4:38 p Patient Name: MARIPOSA HOLLIS Page [id number] at 1023 All edits/amendments must be made on the electronic document DICTATION DATE: 12/13/18 1022 NURSING DIRECTOR: KOMAL 12/13/18 1022 RPT#: [id number] DC DATE:12/13/18 STATUS: DIS IN [facility] [address] [place] [address] END OF REPORT
== END 2018-12-13 09:01 | disposition home or self-care (01) | DRG 640 ==
LOC: D.ER 08:16 → D.ICU 09:01
PROVIDERS: Emergency Medicine; Internal Medicine Nephrology; ADMIT Internal Medicine Nephrology; ATTEND Internal Medicine Nephrology
DX: E87.5 Hyperkalemia (principal); N18.6 End stage renal disease; I12.0 Hypertensive chronic kidney disease with stage 5 chronic kidney disease or end stage renal disease; T82.868A Thrombosis due to vascular prosthetic devices, implants and grafts, initial encounter; Z99.2 Dependence on renal dialysis; Z91.11 Patient's noncompliance with dietary regimen; Z91.14 Patient's other noncompliance with medication regimen; F14.90 Cocaine use, unspecified, uncomplicated

== ENCOUNTER 2019-04-12 10:17 | Outpatient (CLI) | payer MEDICAID ==
[~2019-04-12] VITALS: Ht 165.1 cm; Wt 75.0 kg
[~2019-04-12 10:17] MED LIST changes: +LISINOPRIL10 MG PO; +METOPROLOL TART50 MG PO; +NORVASC5 MG PO
[2019-04-12 11:20] LABS: BASOPHILS 0.3 % (0-2); EOSINOPHILS 0 % (0-7); HEMATOCRIT 33.4 % (36.0-48.0); HEMOGLOBIN 10.8 g/dL (12-16); LYMPHOCYTES 18.8 % (15-50); MCH 31.2 pg (26.0-34.0); MCHC 32.3 g/dL (31.0-37.0); MCV 96.5 fL (80.0-100.0); MEAN PLATELET VOLUME 10.8 fL (7.4-10.4); MONOCYTES 8.3 % (2-11); NEUTROPHILS 72.6 % (40-80); PLATELET COUNT 97 10x3/uL (130-400); RBC 3.46 10x6/uL (4.00-5.40); RDW 15.7 % (11.5-14.5)
--- NOTE | 2019-04-12 11:23 | NUR ---
1125-Shawna Carvajal APRN notified of patient's arrival.
[2019-04-12 11:26] LABS: APTT 32.8 SECONDS (22.8-39.4); INR 1.18 (0.85-1.17); PROTIME 14.5 SECONDS (11.6-15.0)
[2019-04-12 11:29] LABS: ANION GAP 18.9 mmol/L (8-16); CALCIUM 8.7 mg/dL (8.5-10.1); CARBON DIOXIDE 21.7 mmol/L (21.0-32.0); CREATININE - SERUM 10.7 mg/dL (0.6-1.3); POTASSIUM - SERUM 4.6 mmol/L (3.5-5.1)
[2019-04-12 11:49] LABS: PLATELET ESTIMATE DECREASED
[2019-04-12] MEDS ORDERED: METOPROLOL TART50 MG PO (12:08)
[2019-04-12 12:12] VITALS: Ht 165.1 cm; Wt 75.0 kg
--- NOTE | 2019-04-12 15:16 | NUR ---
1445 RETURNED TO 2511 PROCEDURE CANCELLED. IV DC'D WITH CATH INTACT. RELEASED AMB. PT. DECLINED OFFER OF WC.
== END 2019-04-12 15:00 | disposition home or self-care (01) ==
LOC: D.SP 10:17
PROVIDERS: General Practice; ATTEND Internal Medicine Nephrology
DX: T82.898A Other specified complication of vascular prosthetic devices, implants and grafts, initial encounter (principal); Z53.9 Procedure and treatment not carried out, unspecified reason; Z01.812 Encounter for preprocedural laboratory examination